=== PATIENT | female | born 1985 | race Caucasian/White ===

== ENCOUNTER 2020-08-03 11:49 | Emergency (ER) | payer MEDICAID ==
[~2020-08-03] VITALS: Ht 149.9 cm; Wt 60.4 kg
[2020-08-03 11:58] VITALS: BP 124/76
[2020-08-03] MEDS ORDERED: DEXAMETHASONE 4 MG TABLET ONE (12:22)
--- NOTE | 2020-08-03 12:29 | NUR ---
Patient given discharge instructions and they have confirmed that they understand the instructions. Patient ambulatory with steady gait.
[2020-08-03] MEDS ORDERED: DEXAMETHASONE 4 MG TABLET PO ONE (12:30)
== END 2020-08-03 12:30 | disposition home or self-care (01) ==
LOC: ED 12:15
DX: J03.00 Acute streptococcal tonsillitis, unspecified (principal)
CPT/HCPCS: 99283

== ENCOUNTER 2021-08-03 10:55 | Emergency (ER) | payer MEDICAID ==
--- NOTE | 2021-08-03 11:36 | NUR ---
NAX1
--- NOTE | 2021-08-03 11:49 | NUR ---
NA X2
--- NOTE | 2021-08-03 12:08 | NUR ---
NA X3
== END 2021-08-03 12:10 | disposition left against medical advice (07) ==
LOC: ED 12:05
DX: R51.9 Headache, unspecified (principal); R06.02 Shortness of breath; R43.9 Unspecified disturbances of smell and taste; Z53.21 Procedure and treatment not carried out due to patient leaving prior to being seen by health care provider

== ENCOUNTER 2021-08-09 22:12 | Emergency (ER) | payer MEDICAID ==
[~2021-08-09] VITALS: Ht 149.9 cm; Wt 55.7 kg
[2021-08-09 22:22] VITALS: BP 135/83
--- NOTE | 2021-08-09 22:36 | NUR ---
PT EVALUATED BY PA
== END 2021-08-09 22:57 | disposition home or self-care (01) ==
LOC: ED 22:30
DX: J06.9 Acute upper respiratory infection, unspecified (principal); Z20.822 Contact with and (suspected) exposure to COVID-19
CPT/HCPCS: 99283; U0003; U0005